=== PATIENT | female | born 1980 | race Hispanic/Latino ===

== ENCOUNTER 2017-02-08 20:55 | Emergency (ER) | payer SELFPAY ==
[2017-02-09 00:43] VITALS: TEMP 98.2
[2017-02-09 00:44] VITALS: BMI 25.4
[2017-02-09] MEDS ORDERED: Oxycodone/Acetaminophen 5/325 mg Tab PO STA (01:34)
--- NOTE | 2017-02-09 01:37 | ED PDOC ---
Arrival/HPI <Eugenio Yanez - Last Filed: 02/09/17 01:39> - General Historian: Patient <Litzy Rudd - Last Filed: 02/09/17 03:49> - General Chief Complaint: Back Pain Time Seen by Provider: 02/09/17 01:02 - History of Present Illness Narrative History of Present Illness (Text): 02/09/17 01:43 36yo female with history of chronic back pain secondary to herniated disc present to ED complaining of lower back pain. States pain is similar to her previous pain. She came to the ED because she was on oxycodone 10mg q4hrs and ran out of her prescription. States her PMD is part of a new group and still on orientation till next week. She came to the ED because his new partners refused to give her prescription of narcotics. She came to the ED for the prescription. Denies new trauma, urinary/fecal incontinence, saddle anesthesia, focal weakness , abdominal pain, any other complaint. (Litzy Rudd) Past Medical History - Provider Review Nursing Documentation Reviewed: Yes - Neurological Hx Migraine: Yes - Musculoskeletal/Rheumatological Hx Back Pain: Yes - Psychiatric Hx Anxiety: Yes Hx Depression: No Hx Panic Disorder: No Hx Substance Use: No - Surgical History Hx Section: Yes Other/Comment: Cyst removed from an Ovary /lap - Anesthesia Hx Anesthesia: Yes Hx Anesthesia Reactions: No Hx Malignant Hyperthermia: No <Litzy Rudd - Last Filed: 02/09/17 03:49> Family/Social History - Physician Review Nursing Documentation Reviewed: Yes Family/Social History: Unknown Family HX Smoking Status: Light Smoker < 10 Cigarettes Daily Hx Alcohol Use: Yes Frequency of alcohol use: Socially Hx Substance Use: No <Litzy Rudd - Last Filed: 02/09/17 03:49> Allergies/Home Meds <Eugenio Yanez - Last Filed: 02/09/17 01:39> <Litzy Rudd - Last Filed: 02/09/17 03:49> Allergies/Adverse Reactions: Allergies No Known Allergies Allergy (Verified 02/09/17 00:42) Home Medications: Home Meds Medication Instructions Recorded Confirmed Oxycodone HCl [Oxycodone HCl] 10 mg PO Q4 10/28/15 02/09/17 Pregabalin [Lyrica] 150 mg PO BID 04/06/16 02/09/17 Lorezon 750 mg PO HS 02/09/17 02/09/17 Review of Systems - Physician Review All systems were reviewed & negative as marked: Yes - Review of Systems Constitutional: Normal Eyes: Normal ENT: Normal Respiratory: Normal Cardiovascular: Normal Gastrointestinal: Normal Genitourinary Female: Normal Musculoskeletal: Back Pain Skin: Normal Neurological: Normal Endocrine: Normal Hemo/Lymphatic: Normal Psychiatric: Normal <Litzy Rudd A - Last Filed: 02/09/17 03:49> Physical Exam Vital Signs Reviewed: Yes Temperature: Afebrile Blood Pressure: Normal Pulse: Regular Respiratory Rate: Normal Appearance: Positive for: Well-Appearing, Non-Toxic, Comfortable Pain Distress: None Mental Status: Positive for: Alert and Oriented X 3 - Systems Exam Head: Present: Atraumatic, Normocephalic Pupils: Present: PERRL Extroacular Muscles: Present: EOMI Conjunctiva: Present: Normal Mouth: Present: Moist Mucous Membranes Neck: Present: Normal Range of Motion Respiratory/Chest: Present: Clear to Auscultation, Good Air Exchange. No: Respiratory Distress, Accessory Muscle Use Cardiovascular: Present: Regular Rate and Rhythm, Normal S1, S2. No: Murmurs Abdomen: Present: Normal Bowel Sounds. No: Tenderness, Distention, Peritoneal Signs Back: Present: Normal Inspection. No: Midline Tenderness, Paraspinal Tenderness , Pain with Leg Raise Upper Extremity: Present: Normal Inspection. No: Cyanosis, Edema Lower Extremity: Present: Normal Inspection. No: Edema Neurological: Present: GCS=15, CN II-XII Intact, Speech Normal Skin: Present: Warm, Dry, Normal Color. No: Rashes Psychiatric: Present: Alert, Oriented x 3, Normal Insight, Normal Concentration <Litzy Rudd A - Last Filed: 02/09/17 03:49> Vital Signs Temp 02/09/17 00:43 98.2 F Medical Decision Making <Eugenio Yanez - Last Filed: 02/09/17 01:39> <Litzy Rudd A - Last Filed: 02/09/17 03:49> ED Course and Treatment: 02/09/17 03:47 Patient demanded narcotic rx in ED. She was advised that she have chronic pain syndrome and under a care of a Doctor, therefore cannot get narcotic prescription from the ED. She was very adamant. She ws however treated in ED and strongly advised to f/u with her PMD for narcotic rx. She states she have Naprosyn and Tramadol at home and told to take it as directed. TRT ER for any new or worsening symptoms. (Litzy Rudd) - Medication Orders Current Medication Orders: Discontinued Medications Ketorolac Tromethamine (Toradol) 60 mg IM STAT STA Stop: 02/09/17 01:36 Last Admin: 02/09/17 01:56 Dose: 60 MG IM Administration Charges Document 02/09/17 01:56 TIKI (Rec: 02/09/17 01:56 TIKI [facility] [id number]) Injection Site MAR Injection Site Left Deltoid Charges for Administration # of IM Administrations 1 Oxycodone/Acetaminophen (Percocet 5/325 Mg Tab) 1 tab PO STAT STA Stop: 02/09/17 01:35 Last Admin: 02/09/17 01:56 Dose: 1 TAB - PA / METAL FILER / Resident Statement JAZLYN has reviewed & agrees with the documentation as recorded. <Eugenio Yanez - Last Filed: 02/09/17 01:39> Disposition/Present on Arrival <Eugenio Yanez - Last Filed: 02/09/17 01:39> - Present on Arrival Any Indicators Present on Arrival: No History of DVT/PE: No History of Uncontrolled Diabetes: No Urinary Catheter: No History of Decub. Ulcer: No History Surgical Site Infection Following: None - Disposition Have Diagnosis and Disposition been Completed?: Yes Disposition Time: 01:50 Patient Plan: Discharge <Litzy Rudd - Last Filed: 02/09/17 03:49> - Disposition Diagnosis: Chronic back pain Disposition: HOME/ ROUTINE Patient Problems: Current Active Problems Problem Status Diagnosed Chronic back pain Acute Condition: STABLE Discharge Instructions (ExitCare): Chronic Back Pain (ED) Referrals: Mino Cruz DO [Family Provider] - Follow up with primary
== END 2017-02-09 03:56 | disposition home or self-care (01) ==
LOC: ED 20:55
DX: M54.9 Dorsalgia, unspecified (principal); G89.29 Other chronic pain; F17.210 Nicotine dependence, cigarettes, uncomplicated
CPT/HCPCS: 96372; 99282; J1885